=== PATIENT | male | born 1965 | race Caucasian/White ===

== ENCOUNTER 2023-03-06 14:15 | Emergency (ER) | payer OTHER ==
[~2023-03-06] VITALS: Ht 177.8 cm; Wt 85.7 kg
[2023-03-06] MEDS ORDERED: TRANEXAMIC ACID 1,000 MG/10 ML VIAL MC ONE (14:30)
[2023-03-06] MEDS ORDERED: PHENYLEPHRINE 1% 15 ML BTL NS ONE (14:30)
[2023-03-06 15:04] VITALS: BP 122/56; PULSE 79; RESP 17; TEMP 97.6; O2SAT 98
[2023-03-06 15:25] VITALS: BP 125/62; PULSE 79; RESP 17; TEMP 97.6
[2023-03-08 14:50] VITALS: O2SAT 98
== END 2023-03-06 15:25 | disposition home or self-care (01) ==
LOC: MED 14:15
DX: R04.0 Epistaxis (principal); I10 Essential (primary) hypertension; E11.9 Type 2 diabetes mellitus without complications
CPT/HCPCS: 99283; J3490